=== PATIENT | female | born 1955 | race Caucasian/White ===

== ENCOUNTER → 2017-02-21 | Outpatient (CLI) | payer OTHER ==
[~2017-02-21] MED LIST: ASPIRIN 325MG325 MG PO; DARVOCET-N 1001 EACH PO; KEFLEX 500MG.500 MG PO; LIPITOR10 MG PO; OMEPRAZOLE20 MG PO; PHENERGAN 25MG.25 M1 PO
--- NOTE | 2017-02-21 23:58 | RADIOLOGY REPORT PS360 ---
DIG MAMM-SCREEN SHAJI W/CAD CAD Screening ORDERING PHYSICIAN : Quinten Kerns MD PATIENT AGE: 61 years GENDER: Female COMPARISON: Previous mammograms: January 2016, 2014, 199928 December 2012 INDICATION: Routine screening no hormones. No new complaints. Noncontributory family history. Previous stereotactic Breast biopsy left breast TECHNIQUE: Standard CC and MLO images were obtained. R2 CAD reviewed. FINDINGS: Low-density breasts. Involution with fatty replacement bilateral. No dominant mass or suspicious calcifications either breast. RIGHT BREAST: Stable appearance. Stable very minimal asymmetric fibroglandular elements upper-outer quadrant right breast unchanged 2012 LEFT BREAST:Stable with no new findings... Follow-up in one year recommended IMPRESSION Negative stable mammogram : Low-density breast. No areas of concern BI-RADS CATEGORY: 1_Negative RECOMMENDED FOLLOWUP: 12M 12 MONTH FOLLOW-UP (A letter has been sent to the patient regarding results of the study.)
== END ==
LOC: RAD 16:30
DX: Z12.31 Encounter for screening mammogram for malignant neoplasm of breast (principal)
CPT/HCPCS: G0202

== ENCOUNTER → 2017-03-28 | Outpatient (CLI) | payer OTHER ==
--- NOTE | 2017-03-28 09:32 | CARDIOVASCULAR REPORT ---
"Cerebrovascular Exam Indications: 785.9 Bruit. IMPRESSIONS 1. The bilateral vertebral arteries are patent with normal antegrade flow. 2. Study suggests less than 20% stenosis involving the right internal carotid artery. Unable to obtain mid and distal ICA due to body habitus. 3. Study suggests 20-49% stenosis involving the left internal carotid artery,lower end of scale. Carotid duplex study. Complete study and Doppler flow study including spectral analysis, color and charles scale imaging. Height: Height: 149.9cm. Height: 59in. Weight: Weight: 117.9kg. Weight: 259.5lb. Body mass index: BMI: 52.5kg/m^2. Body surface area: BSA: 2.3m^2. Location: Vascular laboratory. Patient status: Outpatient. Tables: Arterial flow: + +--------+--------+ |Location |V sys |V ed | + +--------+--------+ |Right CCA - proximal|90.4cm/s|22cm/s | + +--------+--------+ |Right CCA - distal |56.8cm/s|18.2cm/s| + +--------+--------+ |Right ECA |91.3cm/s|--------| + +--------+--------+ |Right ICA - proximal|110cm/s |45.2cm/s| + +--------+--------+ |Right vertebral |49.6cm/s|--------| + +--------+--------+ |Left CCA - proximal |76.6cm/s|21.1cm/s| + +--------+--------+ |Left CCA - distal |75.6cm/s|20.1cm/s| + +--------+--------+ |Left ECA |57cm/s |--------| + +--------+--------+ |Left ICA - proximal |90.4cm/s|27cm/s | + +--------+--------+ |Left ICA - mid |101cm/s |33.4cm/s| + +--------+--------+ |Left ICA - distal |71.4cm/s|26.9cm/s| + +--------+--------+ |Left vertebral |37.3cm/s|--------| + +--------+--------+ Velocity ratios: + + + + + + | |Right, V sys|Right, V ed|Left, V sys|Left, V ed| + + + + + + |Max ICA/dist CCA|1.94 |2.48 |1.34 |1.66 | + + + + + + (Report amended ) Electronically signed by: Darien Linton [id number]"
--- NOTE | 2017-03-29 17:38 | RADIOLOGY REPORT PS360 ---
PROCEDURE: 2-D M-mode and color Doppler study INDICATIONS FOR THE TEST: Chest pain COPD Heart Murmur+ Tobacco Smoking Palpitations+ Fatigue+ Syncope Edema Hypertension+Diabetes Mellitus Rheumatic Fever SOB+GARG+Obesity Hyperlipidemia+ Family History HD+ Additional History Asthma, CVA 2006 PATIENT INFORMATION HEIGHT: 59 WEIGHT: 260 GENDER: Female B/P: 145/87 2-D/M-MODE INTERPRETATION: 2-D MEASUREMENTS OBSERVED VALUES IN CMS Right Ventricular Dimension (RVDd) 1.7 Interventricular Septum (Thickness)(IVsd) 1.3 Left Ventricular Internal Dimensions(LVIDd) 4.2 Left Ventricular Posterior Wall (Thickness)(LVPWd) 1.2 Aortic Root 3.0 Aortic Cusp Separation 2.1 Left Atrial Dimensions (LAD) 2.7 2D 1. This is a echo report on the [facility]. 2. Technically difficult study because of the patient's factor and poor acoustic windows, endocardial surfaces and valvular structures are not well visualized. 3. The left atrium is qualitatively mildly enlarged, left ventricle is probably normal size, probably preserved left ventricular systolic function, endocardial surface of very poorly visualized to assess segmental wall motion. 4. The right atrium and right ventricle appears to be mildly enlarged with normal contractility. 5. The aortic valve leaflets are not well visualized, there is calcification noted in the aortic valve leaflet. 6. The mitral and tricuspid valve leaflets are minimally thickened. 7. The pulmonic valve is poorly visualized. 8. No significant pericardial effusion noted. DOPPLER INTERROGATION: Doppler interrogation of the aortic, mitral and tricuspid valve is suboptimal, there is mildly increased velocity seen across the aortic valve raising the concern is for presence of mild aortic stenosis, there is no significant aortic insufficiency present. Mild mitral and tricuspid regurgitation is also seen. CONCLUSION: 1. Technically very difficult study because of the patient's factor and poor acoustic windows, endocardial surfaces are very poorly visualized. Valvular structures of not well visualized. If clinically indicated transesophageal echocardiogram or repeat study with Definity contrast is recommended. 2. Mildly enlarged left atrium, left ventricle is probably normal size, probably there is preserved left ventricular systolic function, endocardial surfaces are poorly visualized assess segmental wall motion. 3. Thickened and calcified aortic valve probably there is mild aortic stenosis 4. Mild mitral and tricuspid regurgitation. 5. No significant pericardial effusion noted.
== END ==
LOC: RT 03-26 08:00
DX: R06.02 Shortness of breath (principal); R01.1 Cardiac murmur, unspecified